=== PATIENT | female | born 1980 | race American Indian/Alaskan Native ===

== ENCOUNTER 2020-11-29 15:40 | Emergency (ER) | payer MEDICAID, OTHER ==
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
[2020-11-29] MEDS ORDERED: Take Home: Naproxen 500 MG Tab, 4 Tab Pack PO ONE (17:20)
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
== END 2020-11-29 17:30 | disposition home or self-care (01) ==
LOC: VM.ED 15:40
DX: S80.02XA Contusion of left knee, initial encounter (principal); S40.021A Contusion of right upper arm, initial encounter; Z88.0 Allergy status to penicillin; Z91.013 Allergy to seafood; Y08.89XA Assault by other specified means, initial encounter
CPT/HCPCS: 73562-LT; 99283; 99284-25